=== PATIENT | female | born 1970 | race Hispanic/Latino ===

== ENCOUNTER 2019-04-16 14:32 | Emergency (ER) | payer OTHER ==
[2019-04-16] MEDS ORDERED: NA CHLORIDE 0.9% 1,000 ML ONE (15:21)
[2019-04-16] MEDS ORDERED: ONDANSETRON 4 MG/2 ML VIAL ONE (15:21)
[2019-04-16] MEDS ORDERED: METOCLOPRAMIDE 10 MG/2mL INJ ONE (15:21)
[2019-04-16] MEDS ORDERED: KETOROLAC 30 MG/ML INJ ONE (15:21)
[2019-04-16] MEDS ORDERED: DIPHENHYDRAMINE 50 MG/ML VIAL ONE (15:21)
[2019-04-16] MEDS ORDERED: dexAMETHasone 10 MG/ML VIAL ONE (15:22)
--- NOTE | 2019-04-16 15:35 | EDPHYS ---
Physician Documentation [facility] Name: Brooklynn Urena Age: 49 yrs Sex: Female : 1970 Arrival Date: 04/16/2019 Time: 14:35 Bed 20 Private MD: Aj Clark ED Physician Fritz Campbell HPI: 04/16 15:25 This 49 yrs old Female presents to ER via Ambulatory with complaints of Head cp pain. 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 - Social history:: Smoking status: Patient/guardian denies using tobacco. - Ebola Screening: : Patient denies exposure to infectious person Patient denies travel to an Ebola-affected area in the 21 days before illness onset. Vital Signs: 14:46 BP 91 / 71; Pulse 84; Resp 14; Temp 97.0(TE); Pulse Ox 98% on R/A; Weight 61.23 kg; ss Height 5 ft. 5 in. (165.10 cm); Pain 8/10; 14:46 Body Mass Index 22.46 (61.23 kg, 165.10 cm) ss MDM: 14:59 Patient medically screened. cp 15:32 Refusal of service: The patient/guardian displays adequate decision making capability cp and despite a detailed discussion of alternatives, benefits, risks, and consequences refuses: IV fluids and IV meds. Patient requests IM toradol for pain. Administered Medications: 15:33 Not Given (Patient Refused): NS 0.9% 1000 ml IV at 1 bolus Per protocol; 1000 mL bolus em 15:33 Not Given (Patient Refused): Benadryl 25 mg IVP once em 15:33 Not Given (Patient Refused): Reglan 10 mg IVP once; over 1 to 2 minutes em 15:33 Not Given (Patient Refused): Decadron - Dexamethasone 10 mg IVP once em 15:34 Not Given (Other Intervention Used): TORadol 30 mg IVP once em 15:34 Drug: TORadol 30 mg Route: IM; Site: right deltoid; em 15:58 Follow up: Response: No adverse reaction; Pain is decreased em Disposition: 04/16/19 15:33 Discharged to Home. Impression: Headache. - Condition is Stable. - Discharge Instructions: General Headache Without Cause. - Prescriptions for promethazine 25 mg Oral Tablet - take 1 tablet by ORAL route every 6 hours As needed; 20 tablet. - Medication Reconciliation Form, Thank You Letter, Antibiotic Education, Prescription Opioid Use form. - Follow up: Private Physician; When: 1 - 2 days; Reason: Recheck today's complaints. - Problem is new. - Symptoms have improved. Signatures: Dispatcher [employer] EDND Saúl Chung, OVERAGE SHORTAGE AND DAMAGE CLERK OVERAGE SHORTAGE AND DAMAGE CLERK Judy Guerrero RN RN Isak Griffith PA PA cp Botello, Elizabeth eb Corrections: (The following items were deleted from the chart) 15:40 15:20 CBC+H.LAB.BRZ ordered. EDND EDMS 15:40 15:20 BASIC METABOLIC PANEL+C.LAB.BRZ ordered. EDND EDMS 16:01 15:33 04/16/2019 15:33 Discharged to Home. Impression: Headache. Condition is Stable. eb Forms are Medication Reconciliation Form, Thank You Letter, Antibiotic Education, Prescription Opioid Use. Follow up: Private Physician; When: 1 - 2 days; Reason: Recheck today's complaints. Problem is new. Symptoms have improved. cp
--- NOTE | 2019-04-16 15:35 | ER ---
Nurse's Notes [facility] Name: Brooklynn Urena Age: 49 yrs Sex: Female : 1970 Arrival Date: 04/16/2019 Time: 14:35 Bed 20 Private MD: Aj Clark Diagnosis: Headache Presentation: 04/16 14:44 Presenting complaint: Patient states: headache to L frontal area and under L eye. ss Patient reports that she suffers from sinus issues and this feels similar to the sinus headaches she has had in the past. Transition of care: patient was not received from another setting of care. Onset of symptoms was April 15, 2019. Risk Assessment: Do you want to hurt yourself or someone else? Patient reports no desire to harm self or others. Initial Sepsis Screen: Does the patient meet any 2 criteria? No. Patient's initial sepsis screen is negative. Does the patient have a suspected source of infection? No. Patient's initial sepsis screen is negative. Care prior to arrival: None. 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 - Social history:: Smoking status: Patient/guardian denies using tobacco. - Ebola Screening: : Patient denies exposure to infectious person Patient denies travel to an Ebola-affected area in the 21 days before illness onset. Screenin:58 Abuse screen: Denies threats or abuse. Nutritional screening: No deficits noted. em Tuberculosis screening: No symptoms or risk factors identified. Fall Risk None identified. Assessment: 14:50 General: Appears uncomfortable, Behavior is calm, cooperative, quiet, Denies fever, ss feeling ill, fatigue, chills. Pain: Complains of pain in left cheek and left side of forehead Pain currently is 8 out of 10 on a pain scale. Quality of pain is described as aching, tender, Is continuous. Neuro: Level of Consciousness is awake, alert, obeys commands, Oriented to person, place, time, situation, Speech is normal, Facial symmetry appears normal, Pupils are PERRLA. Cardiovascular: Capillary refill < 3 seconds is brisk in bilateral fingers. Respiratory: Reports chronic sinus issues Breath sounds are clear bilaterally. Denies cough, pain with respiration, pain with cough, pain with movement. GI: Patient currently denies diarrhea, vomiting. : No signs and/or symptoms were reported regarding the genitourinary system. EENT: Nares are clear Oral mucosa is moist. Throat is clear. Derm: Skin is intact, is healthy with good turgor, Skin is dry, Skin is pink, warm \T\ dry. normal. Musculoskeletal: Circulation, motion, and sensation intact. Capillary refill < 3 seconds, is brisk, in bilateral fingers. Range of motion:. 15:25 Reassessment: refused IV and IV fluids and medications, reports she just wants a shot em of Toradol, provider notified, canceled IV interventions. Vital Signs: 14:46 BP 91 / 71; Pulse 84; Resp 14; Temp 97.0(TE); Pulse Ox 98% on R/A; Weight 61.23 kg; ss Height 5 ft. 5 in. (165.10 cm); Pain 8/10; 14:46 Body Mass Index 22.46 (61.23 kg, 165.10 cm) ss ED Course: 14:35 Patient arrived in ED. mr 14:35 Aj Clark MD is Private Physician. mr 14:45 Triage completed. ss 14:46 Arm band placed on left wrist. ss 14:56 Isak Edwards PA [facility]. cp 14:56 Fritz Campbell MD is Attending Physician. cp 14:57 Saúl Chung LVN is Primary Nurse. em 14:58 Patient has correct armband on for positive identification. Bed in low position. Call em light in reach. 15:38 No provider procedures requiring assistance completed. Patient did not have IV access ss during this emergency room visit. Administered Medications: 15:33 Not Given (Patient Refused): NS 0.9% 1000 ml IV at 1 bolus Per protocol; 1000 mL bolus em 15:33 Not Given (Patient Refused): Benadryl 25 mg IVP once em 15:33 Not Given (Patient Refused): Reglan 10 mg IVP once; over 1 to 2 minutes em 15:33 Not Given (Patient Refused): Decadron - Dexamethasone 10 mg IVP once em 15:34 Not Given (Other Intervention Used): TORadol 30 mg IVP once em 15:34 Drug: TORadol 30 mg Route: IM; Site: right deltoid; em 15:58 Follow up: Response: No adverse reaction; Pain is decreased em Outcome: 15:33 Discharge ordered by . karen 15:58 Discharged to home ambulatory. em 15:58 Condition: good 15:58 Discharge instructions given to patient, Instructed on discharge instructions, follow up and referral plans. medication usage, Demonstrated understanding of instructions, follow-up care, medications, Prescriptions given X 1. 16:01 Patient left the ED. eb Signatures: Robyn Mcfarlane Edgar, DEEP FAT COOK FRY DEEP FAT COOK FRY Judy Guerrero RN RN Isak Griffith PA PA cp Botello, Elizabeth eb
== END 2019-04-16 16:01 | disposition home or self-care (01) ==
LOC: ER 14:32
DX: R51 Headache (principal)
CPT/HCPCS: 96372; 99283; J7030; J1100; J2405; J2765

== ENCOUNTER 2019-12-30 17:15 | Emergency (ER) | payer OTHER ==
[2019-12-30] MEDS ORDERED: DIPHENHYDRAMINE 50 MG/ML VIAL ONE (19:12)
[2019-12-30] MEDS ORDERED: METOCLOPRAMIDE 10 MG/2mL INJ ONE (19:12)
[2019-12-30] MEDS ORDERED: NA CHLORIDE 0.9% 1,000 ML ONE (19:12)
[2019-12-30] MEDS ORDERED: KETOROLAC 30 MG/ML INJ ONE (19:12)
--- NOTE | 2019-12-30 19:41 | ER ---
Nurse's Notes [facility] Name: Brooklynn Urena Age: 49 yrs Sex: Female : 1970 Arrival Date: 12/30/2019 Time: 17:17 Bed 17 Private MD: Diagnosis: Migraine Presentation: 12/29 17:18 Risk Assessment: Do you want to hurt yourself or someone else? Patient reports no sv desire to harm self or others. 17:18 Method Of Arrival: Ambulatory sv 17:19 Chief complaint: Patient states: frontal migraine started this morning. Coronavirus sv screen: Proceed with normal triage. Patient denies a cough. Patient denies shortness of breath or difficulty breathing. Patient denies measured and/or subjective temperature greater than 100.4F prior to today's visit. Patient denies travel on a cruise ship or to a country the [facility] currently lists as an affected area. Patient denies contact with known and/or suspected case of COVID-19. Ebola Screen: No symptoms or risks identified at this time. Initial Sepsis Screen: Does the patient meet any 2 criteria? No. Patient's initial sepsis screen is negative. Does the patient have a suspected source of infection? No. Patient's initial sepsis screen is negative. Onset of symptoms was December 30, 2019. Care prior to arrival: Medication(s) given: took something for sinus pain before coming. 17:19 Acuity: GERTRUDE 4 sv Triage Assessment: 17:23 Headache History: The patient has had previous headaches and this one is similar to sv previous episodes, and this one is more severe than previous episodes. General: Appears in no apparent distress. uncomfortable, Behavior is calm, cooperative, appropriate for age. Pain: Complains of pain in face. Neuro: Level of Consciousness is awake, alert, obeys commands, Oriented to person, place, time, situation, Gait is steady. Neuro: Reports headache frontal area. Respiratory: Respiratory effort is even, unlabored. 20:21 Pain: Pain began Also complains of no other associated symptoms. 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 - Social history:: Smoking status: Patient denies any tobacco usage or history of. Screenin:00 Abuse screen: Denies threats or abuse. Denies injuries from another. Nutritional rv screening: No deficits noted. Tuberculosis screening: No symptoms or risk factors identified. Fall Risk None identified. Assessment: 19:00 General: Appears uncomfortable, Behavior is agitated. rv 19:00 Pain: Complains of pain in forehead Pain currently is 10 out of 10 on a pain scale. rv Neuro: Level of Consciousness is awake, alert, obeys commands, Oriented to person, place, time, situation, Reports headache that is the "worst ever". Cardiovascular: Patient's skin is warm and dry. Respiratory: Airway is patent. Vital Signs: 17:19 BP 109 / 67; Pulse 75; Resp 16; Temp 97.5; Pulse Ox 100% ; Weight 58.97 kg; Height 5 sv ft. 5 in. (165.10 cm); 20:00 BP 106 / 69; Pulse 78; Resp 16; Pulse Ox 100% on R/A; rv 17:19 Body Mass Index 21.63 (58.97 kg, 165.10 cm) sv Bhavani Coma Score: 18:42 Eye Response: spontaneous(4). Verbal Response: oriented(5). Motor Response: obeys kb commands(6). Total: 15. ED Course: 17:17 Patient arrived in ED. ag5 17:18 Arm band placed on. sv 17:22 Triage completed. sv 17:28 Yudy Nevarez FNP-C is [facility]. kb 17:28 Isak Willis MD is Attending Physician. kb 18:43 Millie Yao RN is Primary Nurse. ca1 19:00 Bed in low position. Call light in reach. Side rails up X 1. Pulse ox on. NIBP on. rv 19:00 Inserted saline lock: 20 gauge in right antecubital area, using aseptic technique. rv 19:03 Millie Yao RN is Primary Nurse. ca1 20:00 IV discontinued, intact, bleeding controlled, No redness/swelling at site. Pressure rv dressing applied. 20:00 No provider procedures requiring assistance completed. rv Administered Medications: 19:10 Drug: NS 0.9% 1000 ml Route: IV; Rate: 1000 ml; Site: right antecubital; ca1 20:00 Follow up: IV Status: Completed infusion; IV Intake: 500ml rv 19:11 Not Given (Patient Refused): Reglan 10 mg IVP once; over 1 to 2 minutes ca1 19:11 Drug: TORadol - Ketorolac 15 mg Route: IVP; Site: right antecubital; ca1 20:00 Follow up: Response: No adverse reaction; Marked relief of symptoms; Pain is decreased rv 19:11 Drug: Benadryl 12.5 mg Route: IVP; Site: right antecubital; ca1 20:00 Follow up: Response: No adverse reaction; Marked relief of symptoms; Pain is decreased rv Intake: 20:00 IV: 500ml; Total: 500ml. rv Outcome: 19:40 Discharge ordered by . kb 20:00 Discharged to home ambulatory. rv 20:00 Condition: improved 20:00 Discharge instructions given to patient, Instructed on discharge instructions, follow up and referral plans. Demonstrated understanding of instructions, follow-up care. 20:22 Patient left the ED. rv Signatures: Yudy Nevarez, GAUDENCIO-C PROTECTION ENGINEER-Marleen Victor, RN RN sv Artemio Pires RN RN rv Millie Yao, RN RN ca1 Chloé Hannah ag5 Corrections: (The following items were deleted from the chart) 20:19 19:00 BP 106 / 69; Pulse 78bpm; Resp 16bpm; Pulse Ox 100% RA; rv rv
--- NOTE | 2019-12-30 19:42 | EDPHYS ---
Physician Documentation [facility] Name: Brooklynn Urena Age: 49 yrs Sex: Female : 1970 Arrival Date: 12/30/2019 Time: 17:17 Bed 17 Private MD: ED Physician Isak Willis HPI: 12/29 18:43 This 49 yrs old Female presents to ER via Ambulatory with complaints of kb Headache. 18:43 The patient complains of pain to the forehead. The patient describes the headache as kb constant. Onset: The symptoms/episode began/occurred this morning. Associated signs and symptoms: Pertinent positives: nausea, Photophobia Pertinent negatives: altered mental status, dizziness, fever, malaise, neck stiffness, paresthesias, rash, sinus congestion, sinus tenderness, vision changes, vision loss, vomiting, weakness, vertigo. Severity of symptoms: At its worst the pain was moderate, in the emergency department the pain is unchanged. Headache History: The patient has had previous headaches and this one is similar to previous episodes. The symptoms are alleviated by nothing. the symptoms are aggravated by lights. The patient has experienced similar episodes in the past, several times. The patient has not recently seen a physician. Pt reports she woke up this morning with a migraine. Reports history of migraines. 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 - Social history:: Smoking status: Patient denies any tobacco usage or history of. ROS: 18:42 Constitutional: Negative for fever, chills, and weight loss, Eyes: Negative for injury, kb pain, redness, and discharge, ENT: Negative for injury, pain, and discharge, Neck: Negative for injury, pain, and swelling, Cardiovascular: Negative for chest pain, palpitations, and edema, Respiratory: Negative for shortness of breath, cough, wheezing, and pleuritic chest pain, Back: Negative for injury and pain, MS/Extremity: Negative for injury and deformity, Skin: Negative for injury, rash, and discoloration. 18:42 Abdomen/GI: Positive for nausea, Negative for abdominal pain, vomiting, diarrhea, constipation, abdominal cramps, abdominal distension, anorexia. 18:42 Neuro: Positive for headache, Negative for altered mental status, dizziness, gait disturbance, hearing loss, loss of consciousness, numbness, seizure activity, speech changes, syncope, near syncope, tingling, tinnitus, tremor, visual changes, weakness. Exam: 18:42 Head/Face: Normocephalic, atraumatic. Eyes: Pupils equal round and reactive to light, kb extra-ocular motions intact. Lids and lashes normal. Conjunctiva and sclera are non-icteric and not injected. Cornea within normal limits. Periorbital areas with no swelling, redness, or edema. Neck: Trachea midline, no thyromegaly or masses palpated, and no cervical lymphadenopathy. Supple, full range of motion without nuchal rigidity, or vertebral point tenderness. No Meningismus. Chest/axilla: Normal chest wall appearance and motion. Nontender with no deformity. No lesions are appreciated. Cardiovascular: Regular rate and rhythm with a normal S1 and S2. No gallops, murmurs, or rubs. Normal PMI, no JVD. No pulse deficits. Respiratory: Lungs have equal breath sounds bilaterally, clear to auscultation and percussion. No rales, rhonchi or wheezes noted. No increased work of breathing, no retractions or nasal flaring. Abdomen/GI: Soft, non-tender, with normal bowel sounds. No distension or tympany. No guarding or rebound. No evidence of tenderness throughout. Skin: Warm, dry with normal turgor. Normal color with no rashes, no lesions, and no evidence of cellulitis. MS/ Extremity: Pulses equal, no cyanosis. Neurovascular intact. Full, normal range of motion. Neuro: Awake and alert, GCS 15, oriented to person, place, time, and situation. Cranial nerves II-XII grossly intact. Motor strength 5/5 in all extremities. Sensory grossly intact. Cerebellar exam normal. Normal gait. 18:42 Constitutional: The patient appears alert, awake, uncomfortable. Vital Signs: 17:19 BP 109 / 67; Pulse 75; Resp 16; Temp 97.5; Pulse Ox 100% ; Weight 58.97 kg; Height 5 sv ft. 5 in. (165.10 cm); 20:00 BP 106 / 69; Pulse 78; Resp 16; Pulse Ox 100% on R/A; rv 17:19 Body Mass Index 21.63 (58.97 kg, 165.10 cm) sv [place] Coma Score: 18:42 Eye Response: spontaneous(4). Verbal Response: oriented(5). Motor Response: obeys kb commands(6). Total: 15. MDM: 18:32 Patient medically screened. kb 18:42 Data reviewed: vital signs, nurses notes. Data interpreted: Pulse oximetry: on room air kb is 100 %. Interpretation: normal. 19:40 Counseling: I had a detailed discussion with the patient and/or guardian regarding: the kb historical points, exam findings, and any diagnostic results supporting the discharge/admit diagnosis, the need for outpatient follow up, a family practitioner, to return to the emergency department if symptoms worsen or persist or if there are any questions or concerns that arise at home. Response to treatment: the patient's symptoms have markedly improved after treatment. 12/29 18:39 Order name: IV Start; Complete Time: 19:10 kb Administered Medications: 19:10 Drug: NS 0.9% 1000 ml Route: IV; Rate: 1000 ml; Site: right antecubital; ca1 20:00 Follow up: IV Status: Completed infusion; IV Intake: 500ml rv 19:11 Not Given (Patient Refused): Reglan 10 mg IVP once; over 1 to 2 minutes ca1 19:11 Drug: TORadol - Ketorolac 15 mg Route: IVP; Site: right antecubital; ca1 20:00 Follow up: Response: No adverse reaction; Marked relief of symptoms; Pain is decreased rv 19:11 Drug: Benadryl 12.5 mg Route: IVP; Site: right antecubital; ca1 20:00 Follow up: Response: No adverse reaction; Marked relief of symptoms; Pain is decreased rv Disposition: 12/30 14:35 Co-signature as Attending Physician, Isak Willis MD I agree with the assessment and gomez plan of care. Disposition: 12/30/19 19:40 Discharged to Home. Impression: Migraine. - Condition is Stable. - Discharge Instructions: Migraine Headache, [id number]. - Medication Reconciliation Form, Thank You Letter, Antibiotic Education, Prescription Opioid Use form. - Follow up: Emergency Department; When: As needed; Reason: Worsening of condition. Follow up: Private Physician; When: 2 - 3 days; Reason: Recheck today's complaints, Continuance of care, Re-evaluation by your physician. Signatures: Yudy Nevarez FNP-C FNP-Ckb Verde, Stephanie, RN RN Iska Chopra MD MD cha Vicente, Ronaldo RN SID rv Acob, SID Pinto RN ca1 Corrections: (The following items were deleted from the chart) 12/29 20:22 19:40 12/30/2019 19:40 Discharged to Home. Impression: Migraine. Condition is Stable. rv Forms are Medication Reconciliation Form, Thank You Letter, Antibiotic Education, Prescription Opioid Use. Follow up: Emergency Department; When: As needed; Reason: Worsening of condition. Follow up: Private Physician; When: 2 - 3 days; Reason: Recheck today's complaints, Continuance of care, Re-evaluation by your physician. kb
[2019-12-30 21:32] VITALS: TEMP 97.5; O2SAT 100
[2019-12-30 21:41] VITALS: BP 106/69
== END 2019-12-30 20:22 | disposition home or self-care (01) ==
LOC: ER 17:15
DX: G43.909 Migraine, unspecified, not intractable, without status migrainosus (principal); Z88.8 Allergy status to other drugs, medicaments and biological substances
CPT/HCPCS: 96361; 96375; 96374; 99283; J2765; J1200; J7030